=== PATIENT | female | born 1960 | race Caucasian/White ===

== ENCOUNTER 2017-07-19 10:36 | Outpatient (CLI) | payer OTHER ==
--- NOTE | 2017-07-19 13:30 | MMO ---
BILATERAL SCREENING MAMMOGRAMS BASELINE: Comparison: Baseline study. This study is interpreted with the assistance of computer aided detection. FINDINGS: Scattered fibroglandular densities. No mass, distortion, or suspicious calcification. Recommend one y ear follow up. IMPRESSION: BIRADS 1 - negative. POS: [facility]
== END 2017-07-19 10:37 | disposition home or self-care (01) ==
LOC: SCSMAMMO 10:36
PROVIDERS: ATTEND Family Medicine
DX: Z12.31 Encounter for screening mammogram for malignant neoplasm of breast (principal)
CPT/HCPCS: 77067

== ENCOUNTER 2019-07-12 05:20 | Emergency (ER) | payer OTHER, SELFPAY ==
[2019-07-12 06:09] LABS: #Eosinphils 0.1 thou/uL (0.0-0.7); #Monocytes 0.2 thou/uL (0.11-0.59); #Neutrophils 2.1 thou/uL (1.40-6.50); %Basophils 0.6 % (0.0-1.0); %Eosinophils 1.9 % (0.0-10.0); %Monocytes 4.9 % (0.0-10.0); %Neutrophils 46.7 % (42.0-75.0); Mean Corpuscular HGB CONC 33.9 g/dL (32.0-36.0); Mean Corpuscular Hemoglobin 32.6 pg (27.0-31.0); Mean Corpuscular Volume 96.2 fL (78.0-98.0); Mean Platelet Volume 8.2 fL (7.4-10.4); Platelet Count 195 thou/uL (130-400); RBC Distribution Width 11.9 % (11.5-14.5); Red Blood Cell (RBC) Count 3.68 mill/uL (4.20-5.40); White Blood Cell (WBC) Count 4.4 thou/uL (4.8-10.8)
[2019-07-12] MEDS ORDERED: Fentanyl 100 MCG/2 ML VIAL ONE (06:22)
[2019-07-12 06:29] LABS: ALT (SGPT) 27 U/L (8-55); AST (SGOT) 29 U/L (5-34); Albumin 3.9 g/dL (3.5-5.0); Alkaline Phosphatase 43 U/L (40-110); Anion Gap 14 mmol/L (10-20); BUN (Urea Nitrogen) 15 mg/dL (9.8-20.1); Bilirubin, Total 0.3 mg/dL (0.2-1.2); Calc. Creatinine Clearance 0 mL/min (70-130); Calcium 8.7 mg/dL (7.8-10.44); Carbon Dioxide 25 mmol/L (22-29); Chloride 111 mmol/L (98-107); Estimated GFR-MDRD 79; Globulin 2.5 g/dL (2.4-3.5); Glucose 121 mg/dL (70-105); Protein, Total 6.4 g/dL (6.0-8.3); Sodium 146 mmol/L (136-145)
[2019-07-12] MEDS ORDERED: tiZANidine HCl 4 MG TAB PO SCH (07:45)
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
[2019-07-12] MEDS ORDERED: Iopamidol-370 76% 500 ML 1 ML ONE (10:25)
== END 2019-07-12 08:12 | disposition home or self-care (01) ==
LOC: ERS 05:20
DX: S22.089A Unspecified fracture of T11-T12 vertebra, initial encounter for closed fracture (principal); K76.9 Liver disease, unspecified; R91.1 Solitary pulmonary nodule; X50.1XXA Overexertion from prolonged static or awkward postures, initial encounter
CPT/HCPCS: 70450; 71260; 72125; 74177; 80053; 85025; 96361; 96374; G0390; J3010; Q9967

== ENCOUNTER 2019-07-24 08:20 | Outpatient (CLI) | payer OTHER ==
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
== END 2019-07-24 08:21 | disposition home or self-care (01) ==
LOC: BICRAD 08:20
PROVIDERS: ATTEND Orthopaedic Surgery
DX: M54.5 Low back pain (principal); M54.6 Pain in thoracic spine; S29.9XXD Unspecified injury of thorax, subsequent encounter
CPT/HCPCS: 72080

== ENCOUNTER 2019-09-24 10:14 | Outpatient (CLI) | payer OTHER ==
--- NOTE | 2019-09-24 14:44 | CT ---
CT OF THE CHEST WITH CONTRAST: CT OF THE ABDOMEN WITHOUT AND WITH CONTRAST: 09/24/19 HISTORY: Lung nodule and liver mass seen on prior CT. COMPARISON: 07/12/19. TECHNIQUE: 1. Multiple contiguous axial images were obtained in a CT of the chest with contrast. Sagittal a nd coronal reformats were performed. 2. Multiple contiguous axial images were obtained in a CT of the abdomen only without and with I V contrast. Sagittal and coronal reformats were performed. FINDINGS: CT CHEST: There is a stable nonmass-like area of ground glass attenuation in the right apex on image 15 of 60. No other pulmonary nodules are seen. No pneumothorax or pleural effusion are seen. There are multiple healing left rib fractures. The chest wall soft tissues are unremarkable. The heart is normal in size without focal cardiac abnormality. No hilar or mediastinal lymphadenopath y are seen. Degenerative changes are seen in the spine. There is wedging of the T12 vertebral body predominantly involving the superior end plate. This has slightly worsened compared to the prior examination with a pproximately 25% height loss of this vertebral body. CT ABDOMEN: There is a 2.7 cm hypodense mass in the right lobe of the liver. This is stable compared to the prior examination. This does not definitely demonstrate peripheral puddling, but on the delayed phase imag es, there is fill-in of this lesion and this most likely represents a hemangioma. No other liver lesi ons are seen. The gallbladder, kidneys, adrenal glands, spleen, and pancreas are unremarkable. Postsurgical changes are seen in the stomach. The visualized large and small bowel are unremarkable. No abdominal adenopathy is seen. The abdominal wall soft tissues are unremarkable. IMPRESSION: Stable ground glass attenuation area in the right upper lobe. This most likely is benign and does not represent a discrete pulmonary mass. Stable hepatic mass most likely represents a hemangioma. POS: [facility]
== END 2019-09-24 10:15 | disposition home or self-care (01) ==
LOC: SCSCT 10:14
PROVIDERS: ATTEND Family Medicine
DX: R16.0 Hepatomegaly, not elsewhere classified (principal); R91.8 Other nonspecific abnormal finding of lung field
CPT/HCPCS: 71260; 74160